=== PATIENT | female | born 1995 | race Caucasian/White ===

== ENCOUNTER 2016-09-11 16:21 | Emergency (ER) | payer BC ==
[2016-09-11 17:18] VITALS: BP 125/75
--- NOTE | 2016-09-11 17:35 | UC ---
Eye Complaint HPI - HPI Summary HPI Summary: 21 female presents today with complaints of eye irritation, redness and discharge that began last night and got worse this morning upon waking up . Patient states she felt that her right eye was starting to feel irritated and progressed today. It seemed to have spread into her left eye just a few hours ago. Complains of blurred vision but denies loss of vision. She denies any recent injury or trauma to the eye, having anything get into her eye and does not wear contacts. Has had pink eye in the past. Woke up this morning with her right eye stuck shut. - History of Current Complaint Chief Complaint: UCEye Stated Complaint: EYE COMPLAINT Time Seen by Provider: 09/11/16 17:07 Hx Obtained From: Patient Hx Last Menstrual Period: 09/04/16 ?: No Onset/Duration: Sudden Onset Timing: Constant Severity Initially: Mild Severity Currently: Moderate Location of Injury: Conjunctiva Aggravating Factor(s): Blinking Alleviating Factor(s): Nothing - closing eyes Associated Signs And Symptoms: Positive: Drainage (Purulent), Vision Impairment Bilateral - blurry/foggy no vison loss - Allergies/Home Medications Allergies/Adverse Reactions: Allergies Allergy/AdvReac Type Severity Reaction Status Date / Time No Known Allergies Allergy Verified 09/11/16 17:10 Home Medications: Home Medications Norethindrone Acetate-Ethinyl [Lo Loestrin Fe 1 mg-10 Mcg / 10 Mcg] 1 tab PO DAILY 09/11/16 [History Confirmed 09/11/16] PMH/Surg Hx/FS Hx/Imm Hx Endocrine History Of: Denies: Diabetes Respiratory History Of: Denies: Asthma Psychological History Of: Denies: Anxiety - Surgical History Surgical History: None - Family History Known Family History: Positive: None - Social History Alcohol Use: Occasionally Substance Use Type: None Smoking Status (MU): Never Smoked Tobacco Review of Systems Constitutional: Negative Skin: Negative Eyes: Blurred Vision, Drainage, Eye Redness ENT: Nasal Discharge Respiratory: Negative Cardiovascular: Negative Gastrointestinal: Negative Musculoskeletal: Negative Neurological: Negative Psychological: Negative All Other Systems Reviewed And Are Negative: Yes Physical Exam Triage Information Reviewed: Yes Appearance: Well-Appearing, No Pain Distress, Well-Nourished Vital Signs: Initial Vital Signs Temp 98.4 F 09/11/16 17:11 Pulse 65 09/11/16 17:11 Resp 14 09/11/16 17:11 BP 125/75 09/11/16 17:11 Pulse Ox 100 09/11/16 17:11 Vital Signs Reviewed: Yes Eyes: Positive: Conjunctiva Inflamed, Discharge - b/l purulent discharge noted, crusting ENT: Positive: Normal ENT inspection, Hearing grossly normal, Pharynx normal, Nasal congestion, TMs normal Dental: Negative: Percussion Tenderness @, Cervical Lymphadenopathy Neck: Positive: Supple, Nontender, No Lymphadenopathy Respiratory: Positive: Chest non-tender, Lungs clear, Normal breath sounds, No respiratory distress, No accessory muscle use Cardiovascular: Positive: RRR, No Murmur, Pulses Normal Musculoskeletal: Positive: Strength Intact, ROM Intact Psychological Exam: Normal Skin Exam: Normal Eye Complaint Course/Dx - Course Course Of Treatment: patient will be treated with polytrim antibiotic drops to due ease of application and she does not wear contacts. instructed to keep her hands and items out of her eye and to try not to touch them. - Differential Dx/Diagnosis Differential Diagnosis/HQI/PQRI: Conjunctivitis, Foreign Body, Orbital Cellulitis Provider Diagnoses: conjunctivits b/l Discharge - Discharge Plan Condition: Stable Disposition: HOME Prescriptions: Polymyx/Trimethoprim OPTH* [Polytrim OPHTH*] 1 drop BOTH EYES Q3H #1 btl Patient Education Materials: Conjunctivitis (ED) Forms: *School Release Additional Instructions: Use eye drops as prescribed for the next 7 days. This is very contagious so wash hands frequently and change your pillow cases/towels and wash with hot water. Try not touching your eyes. If symptoms worsen or do not improve please return.
== END 2016-09-11 17:52 | disposition home or self-care (01) ==
LOC: UCCORT 16:21
DX: H10.33 Unspecified acute conjunctivitis, bilateral (principal)
CPT/HCPCS: 99202; G0463